=== PATIENT | male | born 1975 | race African-American/Black ===

== ENCOUNTER 2019-10-05 11:38 | Emergency (ER) | payer BC ==
--- NOTE | 2019-10-05 12:50 | ER ---
Nurse's Notes [facility] Name: Yaneth Sommers Age: 43 yrs Sex: Male : 1975 Arrival Date: 10/05/2019 Time: 11:48 Bed 19 Private MD: Diagnosis: Pain in left knee Presentation: 10/04 11:49 Chief complaint: Patient states: woke up one day X 2 weeks ago and it was hurting, iw denies injury, feels tight. Coronavirus screen: Patient denies fever greater than 100.4F, cough, shortness of breath, or difficulty breathing. Proceed with normal triage process. Ebola Screen: Patient negative for fever greater than or equal to 101.5 degrees Fahrenheit, and additional compatible Ebola Virus Disease symptoms Patient denies exposure to infectious person. Patient denies travel to an Ebola-affected area in the 21 days before illness onset. No symptoms or risks identified at this time. Initial Sepsis Screen: Does the patient meet any 2 criteria? No. Patient's initial sepsis screen is negative. Does the patient have a suspected source of infection? No. Patient's initial sepsis screen is negative. Risk Assessment: Do you want to hurt yourself or someone else? Patient reports no desire to harm self or others. 11:49 Method Of Arrival: Ambulatory iw 11:49 Acuity: YADIRA 4 iw 14:52 Onset of symptoms was September 06, 2019. ae4 14:55 Onset of symptoms was September 06, 2019. ae4 Triage Assessment: 11:55 General: Appears in no apparent distress. comfortable, Behavior is calm, cooperative, ae4 appropriate for age. Historical: - Allergies: 11:52 No Known Allergies; iw - Home Meds: 11:52 None [Active]; iw - PMHx: 11:52 None; iw - PSHx: 11:52 None; iw - Immunization history:: Adult Immunizations. - Social history:: Smoking status: Patient reports the use of cigarette tobacco products, smokes one pack cigarettes per day. Screenin:55 Abuse screen: Denies threats or abuse. Nutritional screening: No deficits noted. ae4 Tuberculosis screening: No symptoms or risk factors identified. Fall Risk None identified. Assessment: 11:55 General: Appears in no apparent distress. comfortable, Behavior is calm, cooperative, ae4 appropriate for age. Pain: Complains of pain in lateral aspect of left knee, posterior aspect of left knee, medial aspect of left knee and left knee Pain currently is 10 out of 10 on a pain scale. Neuro: Level of Consciousness is awake, alert, obeys commands, Oriented to person, place, time, situation, Appropriate for age. Cardiovascular: Heart tones S1 S2 present Patient's skin is warm and dry. Respiratory: Airway is patent Respiratory effort is even, unlabored, Respiratory pattern is regular, symmetrical. GI: No signs and/or symptoms were reported involving the gastrointestinal system. : No signs and/or symptoms were reported regarding the genitourinary system. EENT: No signs and/or symptoms were reported regarding the EENT system. Derm: Skin is normal. Musculoskeletal: No signs and/or symptoms reported regarding the musculoskeletal system. mild swelling to left knee. 12:30 Reassessment: No changes from previously documented assessment. Patient and/or family ae4 updated on plan of care and expected duration. Pain level reassessed. Patient is alert, oriented x 3, equal unlabored respirations, skin warm/dry/pink. Vital Signs: 11:49 BP 184 / 97; Pulse 84; Resp 16; Temp 98.4; Pulse Ox 97% on R/A; Weight 97.52 kg; Height iw 5 ft. 10 in. (177.80 cm); Pain 0/10; 14:51 BP 164 / 82; Pulse 80; Resp 16; Pulse Ox 98% on R/A; ae4 11:49 Body Mass Index 30.85 (97.52 kg, 177.80 cm) iw ED Course: 11:48 Patient arrived in ED. am2 11:51 Triage completed. iw 11:52 Arm band placed on. iw 11:53 Yovany Esposito PA is PHCP. cp 11:53 Chin Acuna MD is Attending Physician. cp 11:55 Bed in low position. Call light in reach. Side rails up X 1. Pulse ox on. ae4 12:37 XRAY Knee LEFT 3 view In Process Unspecified. EDMS 12:48 Karl Pagan MD is Referral Physician. cp 13:07 Dwight Castrejon, GERSON is Primary Nurse. ae4 14:52 No provider procedures requiring assistance completed. Patient did not have IV access ae4 during this emergency room visit. Dressings: BRIAN wrap x 1. Administered Medications: No medications were administered Outcome: 12:49 Discharge ordered by . hanny 13:07 Patient left the ED. ae4 14:54 Discharged to home ambulatory. ae4 14:54 Condition: stable 14:54 Discharge instructions given to patient, Instructed on discharge instructions, follow up and referral plans. medication usage, Demonstrated understanding of instructions, Prescriptions given X 1, Discussed RICE method Signatures: Dispatcher [employer] EDNieves Ulloa RN RN iw Yovany Esposito PA PA cp Moreno, Amanda am2 Elliott, Andrea RN RN ae4
--- NOTE | 2019-10-05 12:50 | EDPHYS ---
Physician Documentation [facility] Name: Yaneth Sommers Age: 43 yrs Sex: Male : 1975 Arrival Date: 10/05/2019 Time: 11:48 Bed 19 Private MD: ED Physician Chin Acuna HPI: 10/04 11:59 This 43 yrs old Black Male presents to ER via Ambulatory with complaints of Knee Pain. cp 12:00 The patient presents with pain, that is acute. The complaints affect the posterior cp aspect of left knee and left knee. 12:00 Context: resulted from an unknown cause, the patient can fully bear weight, the patient cp is able to ambulate, without difficulty, Problem is a result from a previous injury: No. Onset: The symptoms/episode began/occurred 2 week(s) ago. Modifying factors: the symptoms are aggravated by bending knee. Associated signs and symptoms: Pertinent negatives calf tenderness, fever, numbness, rash, swelling, warmth. Severity of symptoms: in the emergency department the symptoms are unchanged, despite home interventions. Historical: - Allergies: 11:52 No Known Allergies; iw - Home Meds: 11:52 None [Active]; iw - PMHx: 11:52 None; iw - PSHx: 11:52 None; iw - Immunization history:: Adult Immunizations. - Social history:: Smoking status: Patient reports the use of cigarette tobacco products, smokes one pack cigarettes per day. ROS: 12:05 MS/extremity: Positive for pain, tenderness, of the left knee, Negative for injury or cp acute deformity, decreased range of motion, paresthesias. 12:05 Constitutional: Negative for body aches, chills, fever. cp 12:05 Skin: Negative for cellulitis, rash. 12:05 All other systems are negative. Exam: 12:15 Constitutional: The patient appears in no acute distress, alert, awake, comfortable, cp non-toxic, well developed, well nourished. 12:15 Head/Face: Normocephalic, atraumatic. cp 12:15 Cardiovascular: Rate: normal. 12:15 Respiratory: the patient does not display signs of respiratory distress, Respirations: normal. 12:15 Musculoskeletal/extremity: Perfusion: the extremity is normally perfused throughout, Sensation intact. Joints: All joints are normal except the left knee displays tender to palpation above patella, mild pain with flexion of knee, no joint line tenderness, no MCL or LCL laxity, DVT Exam: negative Homans' sign noted on exam, no erythema, no increased warmth, Calves: are non-tender, have equal circumference. 12:15 Skin: cellulitis, is not appreciated, no rash present. Vital Signs: 11:49 BP 184 / 97; Pulse 84; Resp 16; Temp 98.4; Pulse Ox 97% on R/A; Weight 97.52 kg; Height iw 5 ft. 10 in. (177.80 cm); Pain 0/10; 14:51 BP 164 / 82; Pulse 80; Resp 16; Pulse Ox 98% on R/A; ae4 11:49 Body Mass Index 30.85 (97.52 kg, 177.80 cm) iw MDM: 12:00 Patient medically screened. cp 12:42 Test interpretation: by ED physician or midlevel provider: xrays of left knee negative cp for fracture. 12:48 Data reviewed: vital signs, nurses notes, radiologic studies, plain films, and as a cp result, I will discharge patient. 12:48 Counseling: I had a detailed discussion with the patient and/or guardian regarding: the cp historical points, exam findings, and any diagnostic results supporting the discharge/admit diagnosis, radiology results, to return to the emergency department if symptoms worsen or persist or if there are any questions or concerns that arise at home. ED course: VSS. Recommend bracing and NSAIDs for pain. Follow-up with ortho if pain continues. 10/04 11:59 Order name: XRAY Knee LEFT 3 view cp Administered Medications: No medications were administered Disposition: 13:15 Chart complete. cp 18:41 Co-signature as Attending Physician, Chin Acuna MD I agree with the assessment and kdr plan of care. Disposition: 10/05/19 12:49 Discharged to Home. Impression: Pain in left knee. - Condition is Stable. - Discharge Instructions: Elastic Bandage and RICE, Knee Pain. - Prescriptions for Ibuprofen 800 mg Oral Tablet - take 1 tablet by ORAL route every 8 hours As needed take with food; 30 tablet. - Medication Reconciliation Form, Thank You Letter, Antibiotic Education, Prescription Opioid Use form. - Follow up: Karl Pagan MD; When: 1 week; Reason: pain continues. - Problem is new. - Symptoms are unchanged. Signatures: Dispatcher [employer] EDMS Chin Acuna MD MD kdr Nieves Vega RN RN iw Yovany Esposito PA PA cp Dwight Castrejon RN RN ae4 Corrections: (The following items were deleted from the chart) 13:07 12:49 10/05/2019 12:49 Discharged to Home. Impression: Pain in left knee. Condition is ae4 Stable. Forms are Medication Reconciliation Form, Thank You Letter, Antibiotic Education, Prescription Opioid Use. Follow up: Karl Pagan; When: 1 week; Reason: pain continues. Problem is new. Symptoms are unchanged. cp
--- NOTE | 2019-10-05 12:53 | RAD REPORT ---
EXAM DESCRIPTION: RAD - Knee Left 3 View - 10/05/2019 12:36 pm CLINICAL HISTORY: Left knee pain FINDINGS: No fracture or dislocation is seen. A small joint effusion suspected
[2019-10-05 13:15] VITALS: BP 184/97; TEMP 98.4; O2SAT 97
== END 2019-10-05 13:07 | disposition home or self-care (01) ==
LOC: ER 11:38
DX: M25.562 Pain in left knee (principal); F17.210 Nicotine dependence, cigarettes, uncomplicated
CPT/HCPCS: 99283